=== PATIENT | female | born 1955 | race Caucasian/White ===

== ENCOUNTER 2021-05-07 10:34 | Outpatient (CLI) | payer MEDICARE, SELFPAY ==
--- NOTE | 2021-05-07 10:49 | XR_ITS ---
WS: [id number] RIGHT KNEE: 3 VIEW(S) TECHNIQUE: AP, oblique(s) and lateral. HISTORY: PAIN IN RIGHT KNEE COMPARISON: None available. No fracture or dislocation. No joint space narrowing or osteophytes. No joint effusion. No soft tissue abnormality. XR/XR knee RT 3V* [id number] IMPRESSION: Normal RIGHT knee.
== END 2021-05-07 10:35 | disposition home or self-care (01) ==
PROVIDERS: PCP Family Medicine; Visit Provider Family Medicine
DX: M25.561 Pain in right knee (principal)
CPT/HCPCS: 73562

== ENCOUNTER 2024-01-10 11:26 | Outpatient (CLI) | payer MEDICARE, SELFPAY ==
--- NOTE | 2024-01-10 11:42 | XRR_ITS ---
PROCEDURE INFORMATION: Exam: XR Right Knee Exam date and time: 01/10/2024 11:49 AM Age: 68 years old Clinical indication: Pain; Knee; Right; Additional info: Pain in right knee TECHNIQUE: Imaging protocol: Radiologic exam of the right knee. Views: 3 views. COMPARISON: CR XR knee RT 3V* [id number] 07/05/2021 10:55 FINDINGS: Bones/joints: Normal alignment of the right knee. No fractures identified. There are no significant degenerative changes appreciated. There is trace right knee effusion. Soft tissues: Normal. XR/XR knee RT 4V [id number] IMPRESSION: Trace right knee effusion, otherwise normal study
== END 2024-01-10 11:27 | disposition home or self-care (01) ==
PROVIDERS: PCP Family Medicine; Visit Provider Family Medicine
DX: M25.561 Pain in right knee (principal); M25.461 Effusion, right knee
CPT/HCPCS: 73564

== ENCOUNTER 2024-02-14 09:13 | Outpatient (CLI) | payer MEDICARE, SELFPAY ==
--- NOTE | 2024-02-14 09:20 | MR_ITS ---
WS: [id number] MRI RIGHT KNEE NONCONTRAST TECHNIQUE: Axial PD, coronal PD fat sat, coronal PD, sagittal PD, and sagittal PD fat-sat images obta ined. CLINICAL INFORMATION: PAIN IN R KNEE COMPARISON: None. FINDINGS: Distal quadriceps and patella tendons are intact. Hypertrophic patella. ACL appears intact with incre ased T1 and T2 signal compatible with mucoid degeneration. Normal PCL. Tiny suprapatellar effusion. A dvanced grade IV chondromalacia patella with subchondral edema. Medial and lateral patellar retinacul um appear intact. Normal popliteal fossa. Normal lateral collateral ligament. Normal popliteus. Normal medial collatera l ligament. Fibular head is normal in appearance. Moderate tricompartment arthritis. Moderate chondromalacia medial and lateral joint compartments. Chr onic thinning of the medial and lateral meniscus worse involving the lateral meniscus. Recommend marian elation with prior partial meniscectomy. No acute appearing meniscal tears. MR/MR knee RT wo con* [id number] IMPRESSION: 1. ACL and PCL appear intact. Mucoid degeneration of the ACL. 2. Advanced chondromalacia patella with a small amount of subchondral edema. S mall suprapatellar effusion. 3. Chronic thinning of the medial and lateral meniscus worse involving the lat eral meniscus. This may be due to prior partial meniscectomy. Recommend correla tion with prior surgical history. 4. Medial and lateral collateral ligaments appear intact. 5. No other acute findings. Outbridge grading: grade IV: full-thickness cartilage loss with underlying bone reactive changes
== END 2024-02-14 09:14 | disposition home or self-care (01) ==
LOC: RAD 09:13
PROVIDERS: PCP Family Medicine; Visit Provider Family Medicine
DX: M94.29 Chondromalacia, multiple sites (principal); M13.861 Other specified arthritis, right knee; M23.303 Other meniscus derangements, unspecified medial meniscus, right knee; M23.300 Other meniscus derangements, unspecified lateral meniscus, right knee; M23.8X1 Other internal derangements of right knee
CPT/HCPCS: 73721

== ENCOUNTER → 2025-01-30 08:55 | Outpatient (BNVA) | payer MEDICARE, SELFPAY | PROVIDERS: PCP Clinical Nurse Specialist Adult Health; Visit Provider Nurse Practitioner Family | DX: L82.1 Other seborrheic keratosis (principal); D23.39 Other benign neoplasm of skin of other parts of face; L72.0 Epidermal cyst; D18.01 Hemangioma of skin and subcutaneous tissue; L81.4 Other melanin hyperpigmentation; L57.8 Other skin changes due to chronic exposure to nonionizing radiation; X32.XXXA Exposure to sunlight, initial encounter; L57.0 Actinic keratosis; L82.0 Inflamed seborrheic keratosis; L29.89 Other pruritus; R20.8 Other disturbances of skin sensation; R23.8 Other skin changes | CPT/HCPCS: 17000; 17110; 99203 ==

== ENCOUNTER → 2025-02-27 09:19 | Outpatient (BNVA) | payer MEDICARE, SELFPAY | PROVIDERS: PCP Clinical Nurse Specialist Adult Health; Visit Provider Clinical Nurse Specialist Adult Health | DX: E11.9 Type 2 diabetes mellitus without complications (principal) | CPT/HCPCS: 80053; 80061; 82607; 83036 ==

== ENCOUNTER → 2025-07-31 09:40 | Outpatient (BNVA) | payer MEDICARE, SELFPAY | PROVIDERS: PCP Clinical Nurse Specialist Adult Health; Visit Provider Clinical Nurse Specialist Adult Health | DX: E55.9 Vitamin D deficiency, unspecified (principal); E11.9 Type 2 diabetes mellitus without complications; E03.9 Hypothyroidism, unspecified | CPT/HCPCS: 80053; 80061; 82306; 82607; 83036; 84443; 85025 ==